=== PATIENT | male | born 1980 | race African-American/Black ===

== ENCOUNTER 2020-08-21 13:06 | Inpatient (IN) | payer OTHER ==
[~2020-08-21] VITALS: Ht 185.4 cm; Wt 65.7 kg
[2020-08-21 14:02] LABS: BASO # 0.1 (0.0-0.2); BASO % 0.9 % (0.0-2.0); EOS # 0.1 (0.0-0.7); EOS % 1.1 % (0-4.0); GRAN # 4.5 (1.4-6.5); GRAN % 67.6 % (42.2-75.2); HEMATOCRIT 41.1 % (42.0-52.0); HEMOGLOBIN 14.4 g/dl (13.5-18.0); LYMPH # 1.6 (1.2-3.4); LYMPH % 24.8 % (20.0-51.0); MEAN CELL VOLUME 87 fl (80.0-100.0); MEAN CORPUSCULAR HEMOGLOBIN 30 pg (27.0-31.0); MEAN CORPUSCULAR HGB CONC 35 g/dl (33.0-37.0); MEAN PLATELET VOLUME 10.7 fl (7.4-10.4); MONO # 0.3 (0.1-0.6); PLATELET COUNT 270 K/mm3 (130-400); RED BLOOD COUNT 4.75 M/mm3 (4.20-5.60); REDCELL DISTRIBUTION WIDTH-CV 12.1 % (11.5-14.5)
[2020-08-21 14:14] LABS: ALANINE AMINOTRANSFERASE 48 U/L (4-49); ALBUMIN 3.6 gm/dL (3.5-5.0); ALKALINE PHOSPHATASE 219 U/L (50-136); ANION GAP 9 mmol/L (7-16); AST,SGOT 48 U/L (15-37); BILIRUBIN,TOTAL 0.7 mg/dL (0.0-1.0); BLOOD UREA NITROGEN 13 mg/dL (9-20); CALCIUM 8.3 mg/dL (8.4-10.2); CARBON DIOXIDE 22 mmol/L (22-30); CREATININE, serum 0.68 (0.66-1.25); LIPASE 138 U/L (23-300); POTASSIUM 4.7 mmol/L (3.4-5.0); TOTAL PROTEIN 6.7 gm/dL (6.4-8.2)
[2020-08-21 14:38] LABS: CHLORIDE 87 mmol/L (98-107); GLUCOSE 790 mg/dL (74-106); SODIUM 117 mmol/L (137-145)
[2020-08-21 15:35] LABS: ACETONE,SERUM NEGATIVE
[2020-08-21 15:40] LABS: COLLECTION METHOD CLEAN CATCH
--- NOTE | 2020-08-21 15:46 | NUR ---
SW consult received. SW met with patient about care. Patient reports that he is homeless and has been for approximately a year. 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 Patient reports that the paper work was received late and put him in violation with rules. Patient reports that he was last at the homeless nursing home 4 days ago. Patient reports that he also diabetic and has not had insulin in a month. 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 SW called [facility] to find out status. Patient is not on the do not return list however, they have a 30 day ban on all person who are checked out where they are voluntary or not. Patient can be connect with [facility] but it can not happen on a weekend. Can make contact on Sunday to support clients' medication needs. Patients phone number is [phone]. Patient reports that he is from [facility] and does not wish to return. Patient denies having any other family or friends in the area. There are no other homeless shelters for patient to use. Can revisit a wrap around plan on Sunday.
[2020-08-21 16:46] LABS: PH 5 (5-8); URINE APPEARANCE Clear; URINE COLOR Straw; URINE GLUCOSE 3+ (NEGATIVE); URINE KETONE 1+ (NEGATIVE); URINE PROTEIN(semi-quant) Negative (NEGATIVE)
[2020-08-21 16:47] LABS: URINE BILIRUBIN Negative (NEGATIVE); URINE BLOOD Negative (NEGATIVE); URINE LEUKOCYTE ESTERASE Negative (NEGATIVE); URINE NITRATE Negative (NEGATIVE); URINE UROBILINOGEN Negative (NEGATIVE)
[2020-08-21 16:49] LABS: MUCOUS Present /lpf; URINE BACTERIA None Seen /hpf; URINE RBC 0-2 /hpf
[2020-08-21 17:01] LABS: TRICYCLIC ANTIDEPRESS URINE NEGATIVE
[2020-08-21] MEDS ORDERED: NOVOLOG FLEX100 U/ML (17:01)
[2020-08-21 17:11] VITALS: BP 132/60; PULSE 92; TEMP 98.9
--- NOTE | 2020-08-21 20:30 | NUR ---
PT IN BED, LIGHTS OUT. ALLOWED VS AND ACCUCHECK TO BE DONE. IS ALERT AND ORIENTED X4. WOULD NOT OPEN HIS EYES OR MAKE EYE CONTACT WITH STAFF. HAS SL TO RIGHT HAND, FLUSHES WELL. ACCUCHECK 362.
[2020-08-21 20:48] VITALS: BP 143/91; PULSE 95; TEMP 98.7
--- NOTE | 2020-08-21 21:05 | NUR ---
NOVOLOG 10UNITS GIVEN FOR BS READING. ALSO GIVEN SCHEDULED SQ HEPARIN. PT WAS SADIE WITH ANSWERS, BUT COOPERATIVE.
[2020-08-22 04:00] VITALS: BP 128/71; PULSE 89; TEMP 98.3
--- NOTE | 2020-08-22 04:00 | NUR ---
AWAKENED FOR VS. DENIES NEEDS.
[2020-08-22 07:04] LABS: CALCIUM 8.4 mg/dL (8.4-10.2); CREATININE, serum 0.57 (0.66-1.25); POTASSIUM 3.9 mmol/L (3.4-5.0)
[2020-08-22 07:06] LABS: BASO # 0.1 (0.0-0.2); BASO % 1.1 % (0.0-2.0); EOS # 0.1 (0.0-0.7); EOS % 1.4 % (0-4.0); GRAN # 2.3 (1.4-6.5); GRAN % 51.3 % (42.2-75.2); HEMATOCRIT 39.9 % (42.0-52.0); HEMOGLOBIN 13.7 g/dl (13.5-18.0); LYMPH # 1.7 (1.2-3.4); LYMPH % 37.6 % (20.0-51.0); MEAN CELL VOLUME 85 fl (80.0-100.0); MEAN CORPUSCULAR HEMOGLOBIN 29 pg (27.0-31.0); MEAN CORPUSCULAR HGB CONC 34 g/dl (33.0-37.0); MEAN PLATELET VOLUME 10.8 fl (7.4-10.4); MONO # 0.4 (0.1-0.6); MONO % 8.4 % (1.7-9.3); PLATELET COUNT 306 K/mm3 (130-400); RED BLOOD COUNT 4.67 M/mm3 (4.20-5.60)
[2020-08-22 07:21] VITALS: BP 129/74; PULSE 88; TEMP 98.2
--- NOTE | 2020-08-22 07:39 | NUR ---
Patient sitting up at edge of bed. Reports hunger, finished his entire breakfast. Insulin per sliding scale. Patinent also given PRN tyelnol for chronic foot pain (neuropathy). Denies other needs or complaints , will monitor
[2020-08-22 11:52] VITALS: BP 126/79; PULSE 89; TEMP 98
--- NOTE | 2020-08-22 14:17 | NUR ---
Patient did well with lunch, reports again still being hungery after lunch, second tray given. Hospitalsit rounded & order obtained. Medication per orders. Patient refused the full 16 units of novolog, reporting that would be too much and his sugar would drop. Patient medicated with 10 units total. He did take long acting levimer ordered. antiboitic as ordered for his finger. No drainge noted at finger sore site. He denies pain. Wanting to rest. Wood Tank Erector assisted with hygiene. Social work aware of patient status & will follow up Sunday.
[2020-08-22 15:54] VITALS: BP 129/86; PULSE 93; TEMP 98.4
--- NOTE | 2020-08-22 18:18 | NUR ---
Patient only complaints is of hunger, he has ambulated halls with mask on & reports being anxious due to hunger. Second meal tray ordered & dietary being careful about carb intake. Deneis pain. Ful dose of insulin this time. He is aware. Will rport off to night nurse
[2020-08-22 19:29] VITALS: BP 133/93; PULSE 106; TEMP 99.1
--- NOTE | 2020-08-22 20:14 | NUR ---
PT'S BLOOD SUGAR 356. MEDICATED WITH NOVOLOG 10UNITS SQ WELL HS HEPARIN. TAKES ORAL ANTIBIOTIC. ASKS FOR MORE FOOD. D/T ELEVATED BS WAS GIVEN SUGAR FREE JELLO AND APPLESAUCE.
--- NOTE | 2020-08-22 21:34 | NUR ---
PT AMBULATING IN HALLWAY. APPEARS SLIGHTLY ANXIOUS.
[2020-08-23 03:52] VITALS: BP 137/83; PULSE 93; TEMP 98.1
[2020-08-23 06:05] LABS: HEMATOCRIT 39.2 % (42.0-52.0); HEMOGLOBIN 13.6 g/dl (13.5-18.0); MEAN CELL VOLUME 85 fl (80.0-100.0); MEAN CORPUSCULAR HEMOGLOBIN 30 pg (27.0-31.0); MEAN CORPUSCULAR HGB CONC 35 g/dl (33.0-37.0); MEAN PLATELET VOLUME 10.8 fl (7.4-10.4); PLATELET COUNT 289 K/mm3 (130-400); RED BLOOD COUNT 4.61 M/mm3 (4.20-5.60); REDCELL DISTRIBUTION WIDTH-CV 11.9 % (11.5-14.5)
[2020-08-23 06:16] LABS: ALBUMIN 3.3 gm/dL (3.5-5.0); BILIRUBIN,TOTAL 0.6 mg/dL (0.0-1.0); CALCIUM 8.4 mg/dL (8.4-10.2); CREATININE, serum 0.67 (0.66-1.25); POTASSIUM 4.3 mmol/L (3.4-5.0); TOTAL PROTEIN 6.3 gm/dL (6.4-8.2)
--- NOTE | 2020-08-23 06:30 | NUR ---
PT RESTLESS, ASKING FOR SNACK. WW=[id number], GIVEN 6 UNITS OF NOVOLOG THEN PEANUT BUTTER/JELLY SANDWICH.
[2020-08-23 07:06] VITALS: BP 130/76; PULSE 93; TEMP 99
[2020-08-23 08:05] LABS: EOSINOPHIL 1 % (0-4); LYMPHOCYTE 54 % (20.0-51.0); NEUTROPHILS 38 % (42.0-75.2); PLATELET ESTIMATE NORMAL (NORMAL)
--- NOTE | 2020-08-23 08:46 | NUR ---
Patient independent in room. He tolerated breakfast. Insulin per orders. Elevated sugars. Antibioitcs as prescribed her reports drainage from his middle figer, I did not see any drainge. His finger does seem swollen & slightly reddneded.
--- NOTE | 2020-08-23 10:00 | NUR ---
SHILPI contacted Becki at the [facility] to inquire what insulin they have in stock. SHILPI obtained that information and then updated the clinical team. The PA provided SHILPI with a script for the two insulins the patient will need: Basaglar and Humalog. SHILPI met with the patient to update and complete the Eligibility Attestation Form. Form completed and the patient signed the form. SHILPI contacted and faxed the script and Attestation Form to Becki at the [facility]. The [facility] will overnight ship the insulin to the hospital pharmacy. SHILPI followed up with the patient about d/c plan. SHILPI discussed the [facility] group home. The patient states that he does not want to go back to [place]. He states that [place] is where he got in trouble and he does not want to return there. He is hopeful to return back to the [facility], when his thirty days are up. The patient states that he will probably just go out and about when he discharges tomorrow. He states that he might just go to retirement to have group home.
--- NOTE | 2020-08-23 10:28 | NUR ---
SW contacted the [facility] in [place]. They are not taking any new people right now.
--- NOTE | 2020-08-23 10:56 | NUR ---
First visit from the receptionist nurse. No needs right now.
[2020-08-23 11:26] VITALS: BP 123/87; PULSE 102; TEMP 97.8
--- NOTE | 2020-08-23 12:17 | NUR ---
Patient thankful for cares given. "Reports 5 star". He is wanting more for lunch, second tray ordered. Denies pain. Will kristine. Social work assisting with discharge planning.
[2020-08-23] MEDS ORDERED: FREESTYLE PREC1 EAC5 MC (14:03)
[2020-08-23] MEDS ORDERED: LANCETS MC (14:03)
[2020-08-23] MEDS ORDERED: GLUCOSE TEST ST1 DEV MC (14:03)
--- NOTE | 2020-08-23 14:20 | NUR ---
SHILPI contacted Glenn at [facility]. Glenn reports that they are accepting new guests and are able to accept guests from out of town. Check-in is at 1600. SHILPI met with the patient to inform. The patient reports that he would be agreeable to going to the [facility]. SHILPI contacted [employer] and [employer] [facility] [employer] to crooks rides. [employer] was about $135 for the trip. [facility] was $45 round trip. SHILPI secured transport tomorrow through [facility] at 1500. The patient reports that he does not have a glucometer or supplies anymore. Becki, at [facility], reports that these are not included in the program and are private pay. SHILPI sent a med voucher and the scripts for the glucometer, strips, and lancets (total: $25.00) to Rodrigue at [facility]. Rodrigue reports that they can deliver the equipment up to the hospital this afternoon and will contact SHILPI when they arrive. SHILPI updated the patient's RN on the above information.
[2020-08-23 16:08] VITALS: BP 123/91; PULSE 99; TEMP 97.9
--- NOTE | 2020-08-23 16:21 | NUR ---
Meera, from [facility], contacted SHILPI to notify that she is in the ED parking lot and has the patient's glucometer, strips, and lancets. SHILPI met Meera and obtained the meter kit.
--- NOTE | 2020-08-23 19:51 | NUR ---
Patient has ambulated the halls independently. He contineus to eat well. Insulin per sliding scale. Social work assisting with discharge planning, Report to night nurse Roxie
[2020-08-23 19:53] VITALS: BP 120/83; PULSE 98; TEMP 98.5
--- NOTE | 2020-08-23 21:30 | NUR ---
PT IS IN BED. HAS ASKED FOR MULTIPLE SNACKS. HS INSULIN GIVEN WELL SQ HEPARIN. AMBULATES IN HALLWAY INDEPENDENTLY. SL TO RIGHT HAND WITHOUT REDNESS OR SWELLING.
[2020-08-24 04:54] VITALS: BP 136/84; PULSE 98; TEMP 99.1
[2020-08-24 07:26] VITALS: BP 117/66; PULSE 86; TEMP 98.4
[2020-08-24 09:05] LABS: EOS % 0.8 % (0-4.0); GRAN # 1.9 (1.4-6.5); GRAN % 48.9 % (42.2-75.2); HEMATOCRIT 37.9 % (42.0-52.0); HEMOGLOBIN 13.1 g/dl (13.5-18.0); LYMPH # 1.5 (1.2-3.4); LYMPH % 38.3 % (20.0-51.0); MEAN CELL VOLUME 86 fl (80.0-100.0); MEAN CORPUSCULAR HEMOGLOBIN 30 pg (27.0-31.0); MEAN CORPUSCULAR HGB CONC 35 g/dl (33.0-37.0); MONO # 0.4 (0.1-0.6); MONO % 10.5 % (1.7-9.3); PLATELET COUNT 292 K/mm3 (130-400); RED BLOOD COUNT 4.42 M/mm3 (4.20-5.60); REDCELL DISTRIBUTION WIDTH-CV 12.1 % (11.5-14.5)
[2020-08-24 09:16] LABS: CALCIUM 8.2 mg/dL (8.4-10.2); CREATININE, serum 0.7 (0.66-1.25); POTASSIUM 4.6 mmol/L (3.4-5.0)
[2020-08-24] MEDS ORDERED: BASAGLAR K100 UNIT/1 SQ (09:49)
[2020-08-24] MEDS ORDERED: HUMALOG PEN100 U/ML SQ ×2 (09:49→15:31)
[2020-08-24] MEDS ORDERED: DOXYCYCLINE 10100 MG PO (09:56)
--- NOTE | 2020-08-24 10:06 | NUR ---
SHILPI staffed with the pharmacist. The patient's insulin should be delivered this morning and our pharmacy will provide the patient with some insulin pens. SHILPI contacted [facility] and secured the patient a follow up appointment on Sunday, 09/01, at 1000. SHILPI notified the clinical team and varnishing unit operator of the appointment. SHILPI faxed the patient's records to [facility].
[2020-08-24 11:17] VITALS: BP 146/84; PULSE 94; TEMP 97.9
--- NOTE | 2020-08-24 14:15 | NUR ---
Patient alert and oriented, answers questions appropriately. See assessment. Patient requests frequent meals and snacks. Ambulates in halls several times requesting to go outside to smoke. Educated patient on smoking cessation. No other c/o at this time.
[2020-08-24] MEDS ORDERED: LEVEMIR FLEX100 U/ML SQ (15:30)
[2020-08-24 16:00] VITALS: BP 152/95; PULSE 95; TEMP 97.3
--- NOTE | 2020-08-24 16:24 | NUR ---
Pharmacy contacted the [facility] to track the patient's insulin. The patient's insulin is stuck in [facility], due to a mechanical difficulty and will not be delivered to the hospital until possibly tomorrow. The clinical team was updated. SHILPI contacted Rodrigue at [facility] to inquire what insulin they have in stock there. They have a Humolog pen and a Levemier pen. SHILPI updated the PA. SW provided a med voucher to [facility] for the two insulins. The clinical team transmitted the scripts for the insulin. The scripts were for one pen of each. [facility] delivered the insulin to the ED entrance. SHILPI obtained the insulin and provided it to the patient's RN. SHILPI contacted Luis at [employer] and requested that they leave at 1600. Luis states that he will get a team together and head to the hospital. Luis states that he has the Human Resources Hr Representative phone number. SHILPI updated the patient's RN. SHILPI met with the patient to update. SHILPI also discussed the importance of going to his appointment at [facility] and how they will continue to prescribe his medications and offer assistance. The patient verbalized understanding. SHILPI contacted and updated [facility] of the patient's tentative departure time from the hospital. SHILPI also informed the medical receptionist that the hospital would tentatively be shipping the patient's insulin from the [facility] to them. Ronit, Financial Counselor, reports that she completed an FAA and Medicaid application with the patient and that she just needs Release of Information Forms and the FAA signed. SHILPI met with the patient and presented him with the forms. The patient verbalized understanding and signed the forms. SHILPI emailed the signed forms back to Ronit.
--- NOTE | 2020-08-24 18:06 | NUR ---
Discharge instructions reviewed with patient, verbalized understanding. Medications/insulins provided for and sent with patient on discharge. [facility] [place], [place] with transporation staff at 1800.
--- NOTE | 2020-08-26 09:55 | NUR ---
Pharmacy notified SHILPI that the patient's insulin from the [facility] arrived to the hospital. SHILPI contacted Wily at [facility]. Wily reports that their system shows that the patient is still there. SHILPI informed Wily on how we would overnight ship the patient's insulin to them today. Wily verbalized understanding. SHILPI updated Pharmacy.
== END 2020-08-24 18:00 | disposition home or self-care (01) | DRG 638 ==
LOC: COL.ER 13:06 → SURG 15:40
PROVIDERS: Emergency Medicine; Nurse Practitioner Family; Physician Assistant
DX: E10.65 Type 1 diabetes mellitus with hyperglycemia (principal); E87.1 Hypo-osmolality and hyponatremia; Z68.1 Body mass index [BMI] 19.9 or less, adult; E10.628 Type 1 diabetes mellitus with other skin complications; L03.012 Cellulitis of left finger; R63.6 Underweight; F15.90 Other stimulant use, unspecified, uncomplicated; F17.210 Nicotine dependence, cigarettes, uncomplicated
CPT/HCPCS: 99231-AI; 99233-AI; 99239; J0696; J1644; J1815; J7030

== ENCOUNTER 2021-05-26 20:42 | Emergency (ER) | payer SELFPAY ==
[~2021-05-26] VITALS: Ht 185.4 cm; Wt 63.6 kg
[~2021-05-26 20:42] MED LIST: BASAGLAR K100 UNIT/1 SQ; DOXYCYCLINE 10100 MG PO; FREESTYLE PREC1 EAC5 MC; GLUCOSE TEST ST1 DEV MC; HUMALOG PEN100 U/ML SQ; LANCETS MC; LEVEMIR FLEX100 U/ML SQ; NOVOLOG FLEX100 U/ML
[2021-05-26 20:43] VITALS: TEMP 98.3
[2021-05-26 21:16] LABS: BASO % 0.5 % (0.0-2.0); EOS % 0.5 % (0-4.0); GRAN # 3.6 K/mm3 (1.4-6.5); HEMATOCRIT 43.1 % (42.0-52.0); LYMPH % 32.4 % (20.0-51.0); MEAN CELL VOLUME 87 fl (80.0-100.0); MEAN CORPUSCULAR HEMOGLOBIN 30 pg (27.0-31.0); MEAN CORPUSCULAR HGB CONC 35 g/dl (33.0-37.0); MONO # 0.5 K/mm3 (0.1-0.6); MONO % 8.1 % (1.7-9.3); PLATELET COUNT 235 K/mm3 (130-400); RED BLOOD COUNT 4.96 M/mm3 (4.20-5.60); REDCELL DISTRIBUTION WIDTH-CV 12.9 % (11.5-14.5)
[2021-05-26 21:32] LABS: ALBUMIN 3.9 gm/dL (3.5-5.0); BILIRUBIN,TOTAL 0.9 mg/dL (0.2-1.2); C-REACTIVE PROTEIN 1.1 mg/dL (0.00-0.50); CALCIUM 9.5 mg/dL (8.4-10.2); CREATININE, serum 1.29 mg/dL (0.72-1.25); TOTAL PROTEIN 7.6 gm/dL (6.2-8.1)
[2021-05-26] MEDS ORDERED: NOVOLOG 100U100 U/M1 SQ (22:08)
[2021-05-26] MEDS ORDERED: DOXYCYCLINE 10100 MG PO (22:08)
[2021-05-26] MEDS ORDERED: LEVEMIR100 U/ML SQ (22:08)
[2021-05-26] MEDS ORDERED: ULTRAM 50MG TAB50 MG PO (22:08)
[2021-05-26 22:38] VITALS: BP 123/83; PULSE 107
== END 2021-05-26 22:42 | disposition home or self-care (01) ==
LOC: COL.ER 20:42
PROVIDERS: Emergency Medicine
DX: L03.115 Cellulitis of right lower limb (principal); E11.65 Type 2 diabetes mellitus with hyperglycemia; E11.40 Type 2 diabetes mellitus with diabetic neuropathy, unspecified; F17.210 Nicotine dependence, cigarettes, uncomplicated; Z79.4 Long term (current) use of insulin
CPT/HCPCS: J1815; J7030